=== PATIENT | female | born 1990 | race American Indian/Alaskan Native ===

== ENCOUNTER 2018-09-10 18:26 | Emergency (ER) | payer OTHER ==
[2018-09-10 18:59] VITALS: BP 144/91
--- NOTE | 2018-09-10 19:06 | Emergency Department Report ---
Blank Doc - Documentation Documentation: Abd pain n/v intermittently times 6 months. This initial assessment diagnostic orders/clinical plan/treatment (s) is/Are subject change based on patient's health status, clinical progression and re- assessment by fellow clinical providers in the ED. Further treatment and work-up at subsequent clinical providers discretion. Patient/guardians urged not to elope from s their condition may be serious if not clinically assessed and managed. Inital order include:
[2018-09-10 20:32] LABS: Basophils % (Auto) 0.7 % (0.0-1.8); Eosinophils # (Auto) 0.2 K/mm3 (0.0-0.4); Eosinophils % (Auto) 3.2 % (0.0-4.3); Hematocrit 33.9 % (30.3-42.9); Hemoglobin 11.7 gm/dl (10.1-14.3); Lymphocytes # (Auto) 2.4 K/mm3 (1.2-5.4); Lymphocytes % (Auto) 46.1 % (13.4-35.0); Mean Corpuscular HGB Conc 35 % (30-34); Mean Corpuscular Volume 83 fl (79-97); Monocytes # (Auto) 0.4 K/mm3 (0.0-0.8); Monocytes % (Auto) 7.1 % (0.0-7.3); Platelet Count 268 K/mm3 (140-440); Red Blood Count 4.08 M/mm3 (3.65-5.03); Red Cell Distribution Width 14.2 % (13.2-15.2)
[2018-09-10 20:41] LABS: Alanine Aminotransferase 17 units/L (7-56); Albumin 3.9 g/dL (3.9-5); BUN/Creatinine Ratio 6; Blood Urea Nitrogen 4 mg/dL (7-17); Calcium 8.9 mg/dL (8.4-10.2); Hemolysis Index 7
[2018-09-10 21:53] LABS: Bilirubin,Urine NEG (Negative); Blood,Urine NEG (Negative); Color,Urine Yellow (Yellow); Mucus,Urine 3+ /HPF; Protein,Urine <15 mg/dL mg/dL (Negative)
[2018-09-11] MEDS ORDERED: MACROBID PO ONE (00:05)
[2018-09-11] MEDS ORDERED: TYLENOL PO ONE (00:05)
--- NOTE | 2018-09-11 00:30 | Emergency Department Report ---
ED General Adult HPI - General Chief complaint: Nausea/Vomiting/Diarrhea Stated complaint: N/V CHEST PAIN BACK Time Seen by Provider: 09/10/18 19:04 Source: patient Mode of arrival: Ambulatory Limitations: No Limitations - History of Present Illness Initial comments: Patient is a 27-year-old female who presents for nausea and vomiting bilateral back pain management and dizziness 2 months 0 recurrent problem last 2 years patient also endorses dysuria frequency urgency there is no hematuria , there is no fever chills nausea vomiting or symptoms, pt is tolerating po intake at this time without N/V Onset/Timin -: year(s) Severity scale (0 -10): 3 Quality: sharp Consistency: constant Improves with: none Worsens with: none Associated Symptoms: cough - Related Data Previous Rx's Medication Instructions Recorded Last Taken Type Acetaminophen/Codeine [Tylenol 1 tab PO Q4HR PRN #12 tablet 05/26/18 Unknown Rx /Codeine # 3 tab] Ondansetron [Zofran Odt] 4 mg PO Q6HR PRN #20 tab.rapdis 05/26/18 Unknown Rx Promethazine [Phenergan TAB] 25 mg PO Q6HR PRN #20 tab 05/26/18 Unknown Rx ALBUTEROL Inhaler (OR & NICU) 2 puff IH Q4HR PRN #1 inhalation 06/03/18 Unknown Rx [ProAir HFA Inhaler] Codeine Phosphate/Guaifenesin 180 ml PO Q12HR PRN #180 liquid 06/03/18 Unknown Rx [Guaifenesin-Codeine Syrup] HYDROcodone/APAP 5-325 [[place] 1 each PO Q6HR PRN #12 tablet 06/03/18 Unknown Rx 5/325] Meclizine [Antivert] 25 mg PO TID PRN #30 tablet 06/03/18 Unknown Rx predniSONE [Deltasone] 20 mg PO DAILY #15 tablet 06/03/18 Unknown Rx Dicyclomine [Bentyl] 20 mg PO QID #20 tablet 07/01/18 Unknown Rx Promethazine [Phenergan TAB] 25 mg PO Q8HR PRN #18 tab 07/01/18 Unknown Rx Naproxen 500 mg PO BID PRN 1 Days #30 tablet 09/11/18 Unknown Rx Nitrofurantoin Monohyd/M-Cryst 100 mg PO BID #14 capsule 09/11/18 Unknown Rx [Macrobid 100 mg Capsule] Allergies Allergy/AdvReac Type Severity Reaction Status Date / Time ibuprofen [From Advil] Allergy Itching Verified 09/10/18 18:27 naproxen [From Aleve] Allergy Itching Verified 09/10/18 18:27 ED Review of Systems ROS: Stated complaint: N/V CHEST PAIN BACK Other details as noted in HPI Constitutional: denies: chills, fever Eyes: denies: eye pain, eye discharge, vision change ENT: denies: ear pain, throat pain Respiratory: denies: cough, shortness of breath, wheezing Cardiovascular: denies: chest pain, palpitations Endocrine: no symptoms reported Gastrointestinal: denies: abdominal pain, nausea, vomiting, diarrhea, constipation, hematemesis, melena, hematochezia Genitourinary: frequency, hematuria. denies: urgency, dysuria, discharge, abnormal menses Musculoskeletal: myalgia. denies: back pain, joint swelling, arthralgia Skin: denies: rash, lesions Neurological: denies: headache, weakness, paresthesias Psychiatric: denies: anxiety, depression Hematological/Lymphatic: denies: easy bleeding, easy bruising ED Past Medical Hx - Past Medical History Previous Medical History?: No - Surgical History Past Surgical History?: No - Social History Smoking Status: Current Some Day Smoker Substance Use Type: Alcohol - Medications Home Medications: Home Medications Medication Instructions Recorded Confirmed Last Taken Type Acetaminophen/Codeine [Tylenol 1 tab PO Q4HR PRN #12 tablet 05/26/18 Unknown Rx /Codeine # 3 tab] Ondansetron [Zofran Odt] 4 mg PO Q6HR PRN #20 tab.rapdis 05/26/18 Unknown Rx Promethazine [Phenergan TAB] 25 mg PO Q6HR PRN #20 tab 05/26/18 Unknown Rx ALBUTEROL Inhaler (OR & NICU) 2 puff IH Q4HR PRN #1 inhalation 06/03/18 Unknown Rx [ProAir HFA Inhaler] Codeine Phosphate/Guaifenesin 180 ml PO Q12HR PRN #180 liquid 06/03/18 Unknown Rx [Guaifenesin-Codeine Syrup] HYDROcodone/APAP 5-325 [[place] 1 each PO Q6HR PRN #12 tablet 06/03/18 Unknown Rx 5/325] Meclizine [Antivert] 25 mg PO TID PRN #30 tablet 06/03/18 Unknown Rx predniSONE [Deltasone] 20 mg PO DAILY #15 tablet 06/03/18 Unknown Rx Dicyclomine [Bentyl] 20 mg PO QID #20 tablet 07/01/18 Unknown Rx Promethazine [Phenergan TAB] 25 mg PO Q8HR PRN #18 tab 07/01/18 Unknown Rx Naproxen 500 mg PO BID PRN 1 Days #30 tablet 09/11/18 Unknown Rx Nitrofurantoin Monohyd/M-Cryst 100 mg PO BID #14 capsule 09/11/18 Unknown Rx [Macrobid 100 mg Capsule] ED Physical Exam - General Limitations: No Limitations General appearance: alert, in no apparent distress - Head Head exam: Present: atraumatic, normocephalic - Eye Eye exam: Present: normal appearance - ENT ENT exam: Present: mucous membranes moist - Neck Neck exam: Present: normal inspection - Respiratory Respiratory exam: Present: normal lung sounds bilaterally. Absent: respiratory distress - Cardiovascular Cardiovascular Exam: Present: regular rate, normal rhythm. Absent: systolic murmur, diastolic murmur, rubs, gallop - GI/Abdominal GI/Abdominal exam: Present: soft, normal bowel sounds. Absent: distended, tenderness - Rectal Rectal exam: Present: deferred - Extremities Exam Extremities exam: Present: normal inspection - Back Exam Back exam: Present: normal inspection ED Course Vital Signs 09/10/18 18:56 Temperature 98.3 F Pulse Rate 69 Respiratory 18 Rate Blood Pressure 144/91 O2 Sat by Pulse 100 Oximetry ED Medical Decision Making - Lab Data Result diagrams: 09/10/18 19:48 09/10/18 19:48 Abnormal Lab Results 09/10/18 09/10/18 09/10/18 19:48 19:48 21:24 WBC 5.3 RBC 4.08 Hgb 11.7 Hct 33.9 MCV 83 MCH 29 MCHC 35 H RDW 14.2 Plt Count 268 Lymph % (Auto) 46.1 H [place] % (Auto) 7.1 Eos % (Auto) 3.2 Baso % (Auto) 0.7 Lymph # 2.4 [place] # 0.4 Eos # 0.2 Baso # 0.0 Seg Neutrophils % 42.9 Seg Neutrophils # 2.3 Sodium 143 Potassium 3.6 Chloride 106.2 Carbon Dioxide 27 Anion Gap 13 BUN 4 L Creatinine 0.7 Estimated GFR > 60 BUN/Creatinine Ratio 6 Glucose 114 H Calcium 8.9 Total Bilirubin 0.20 AST 17 ALT 17 Alkaline Phosphatase 76 Total Protein 7.0 Albumin 3.9 Albumin/Globulin Ratio 1.3 Urine Color Yellow Urine Turbidity Slightly-cloudy Urine pH 5.0 Ur Specific [place] 1.027 Urine Protein <15 mg/dl Urine Glucose (UA) Neg Urine Ketones Neg Urine Blood Neg Urine Nitrite Neg Urine Bilirubin Neg Urine Urobilinogen 2.0 Ur Leukocyte Esterase Mod Urine WBC (Auto) 8.0 H Urine RBC (Auto) 6.0 U Epithel Cells (Auto) 7.0 Urine Mucus 3+ - Radiology Data Radiology results: pending - Medical Decision Making UA positive for leukocytes and blood cells small amount of red blood, ABD PAIN IMPROVED ,THERE IS NO NS plan treat for UTI Macrobid, naproxen: pt verbalized agreement and understanding of discharge plan. pt will follow up with pcp in 2- 3 days given referral to [facility] in 2-3 days Critical care attestation.: If time is entered above; I have spent that time in minutes in the direct care of this critically ill patient, excluding procedure time. ED Disposition Clinical Impression: UTI (urinary tract infection) Qualifiers: Urinary tract infection type: acute cystitis Hematuria presence: without hematuria Qualified Code(s): N30.00 - Acute cystitis without hematuria Disposition: TO HOME OR SELFCARE Is pt being admited?: No Condition: Stable Instructions: Urinary Tract Infection in Women (ED) Prescriptions: Naproxen 500 mg PO BID PRN 1 Days #30 tablet PRN Reason: Pain , Severe (7-10) Nitrofurantoin Monohyd/M-Cryst [Macrobid 100 mg Capsule] 100 mg PO BID #14 capsule Referrals: VITO HUNTER MD [Primary Care Provider] - 3-5 Days Forms: Work/School Release Form(ED) Time of Disposition: 00:43
== END 2018-09-11 01:05 | disposition home or self-care (01) ==
LOC: ED 18:26
DX: N39.0 Urinary tract infection, site not specified (principal); F17.200 Nicotine dependence, unspecified, uncomplicated; M79.10 Myalgia, unspecified site; Z88.5 Allergy status to narcotic agent
CPT/HCPCS: 36415; 80053; 81001; 85025; 99283

== ENCOUNTER 2018-11-07 11:10 | Emergency (ER) | payer OTHER ==
[2018-11-07 11:20] VITALS: BP 148/93
--- NOTE | 2018-11-07 11:21 | Emergency Department Report ---
Chief Complaint: Nausea/Vomiting/Diarrhea Stated Complaint: VOMITING/COLD SYM Time Seen by Provider: 11/07/18 11:16 - HPI History of Present Illness: This is a 27 y.o. female that presents with congestion, nausea, and vomiting. Patient states she is recovering from a URI for 3 weeks but can't get rid of it. She reports N/V x 3 weeks intermittently. LMP 10/29/18. PMH IBS Denies chest pain, abdominal pain, vaginal discharge, or back pain - Exam Vital Signs: Vital Signs 11/07/18 11:17 Temperature 98.7 F Pulse Rate 60 Respiratory 20 Rate Blood Pressure 148/93 O2 Sat by Pulse 99 Oximetry MSE screening note: Focused history and physical exam performed. Due to findings the following was ordered: Labs ACC for further evaluation. ED Disposition for MSE Condition: Stable
[2018-11-07 11:56] LABS: Hemoglobin 12.2 gm/dl (10.1-14.3); Mean Corpuscular HGB Conc 33 % (30-34); Mean Corpuscular Volume 82 fl (79-97); Platelet Count 239 K/mm3 (140-440); Red Blood Count 4.53 M/mm3 (3.65-5.03); Red Cell Distribution Width 14.8 % (13.2-15.2)
[2018-11-07 12:12] LABS: Alanine Aminotransferase 11 units/L (7-56); BUN/Creatinine Ratio 6; Blood Urea Nitrogen 5 mg/dL (7-17); Hemolysis Index 9
[2018-11-07] MEDS ORDERED: PEPCID IV ONE (12:17)
[2018-11-07] MEDS ORDERED: BENTYL IM ONE (12:17)
[2018-11-07] MEDS ORDERED: ZOFRAN IV ONE (12:17)
[2018-11-07] MEDS ORDERED: NACL 0.9% 1000 ML 1,000 ML IV ONE (12:17)
[2018-11-07 12:55] LABS: HCG Qualitative,Urine Negative (Negative)
--- NOTE | 2018-11-07 13:29 | Ultrasound Report ---
ULTRASOUND ABDOMEN LIMITED INDICATION: Epigastric pain, nausea, vomiting. COMPARISON: CT FINDINGS: Right upper quadrant sonography may suggest slight diffuse nonspecific hepatic coarsening. Grossly preserved contours. No definite focal suspicious lesion or biliary dilatation. No gallstones or pericholecystic fluid. Gallbladder wall thickness is 1.7 mm. Common bile duct is 2.6 mm. Imaged pancreas, nonaneurysmal abdominal aorta and IVC within normal limits. Unremarkable right kidney estimated at 10.9 x 5.7 x 5.7 cm with cortical thickness of 1.7 cm. CONCLUSION: No acute right upper quadrant sonographic abnormality with slightly coarse liver possible, as described. Please correlate. Thank you for the opportunity to participate in this patient's care.
--- NOTE | 2018-11-07 15:00 | Emergency Department Report ---
ED Abdominal Pain HPI - General Chief Complaint: Nausea/Vomiting/Diarrhea Stated Complaint: VOMITING/COLD SYM Time Seen by Provider: 11/07/18 11:16 Source: patient Mode of arrival: Ambulatory Limitations: No Limitations - History of Present Illness Initial Comments: Patient is a 27-year-old [place] female with past medical history of chronic diarrhea from possible IBS who is presenting with 3 days of diarrhea with nausea vomiting. Patient states that she has some generalized crampy abdominal pain. Patient states the pain is 5 out of 10 in severity and is worse as colicky in nature. Patient states she had one syncopal episode 3 days ago in the shower. Patient states that she feels near syncopal anytime she gets really hot. Patient states she has had off and on bouts of abdominal pain with nausea vomiting diarrhea for quite some time. Last time she saw a occupational health coordinator was over 5 years ago. Associated Symptoms: nausea, vomiting, diarrhea - Related Data Previous Rx's Medication Instructions Recorded Last Taken Type Acetaminophen/Codeine [Tylenol 1 tab PO Q4HR PRN #12 tablet 05/26/18 Unknown Rx /Codeine # 3 tab] Ondansetron [Zofran Odt] 4 mg PO Q6HR PRN #20 tab.rapdis 05/26/18 Unknown Rx Promethazine [Phenergan TAB] 25 mg PO Q6HR PRN #20 tab 05/26/18 Unknown Rx ALBUTEROL Inhaler (OR & NICU) 2 puff IH Q4HR PRN #1 inhalation 06/03/18 Unknown Rx [ProAir HFA Inhaler] Codeine Phosphate/Guaifenesin 180 ml PO Q12HR PRN #180 liquid 06/03/18 Unknown Rx [Guaifenesin-Codeine Syrup] HYDROcodone/APAP 5-325 [[place] 1 each PO Q6HR PRN #12 tablet 06/03/18 Unknown Rx 5/325] Meclizine [Antivert] 25 mg PO TID PRN #30 tablet 06/03/18 Unknown Rx predniSONE [Deltasone] 20 mg PO DAILY #15 tablet 06/03/18 Unknown Rx Dicyclomine [Bentyl] 20 mg PO QID #20 tablet 07/01/18 Unknown Rx Promethazine [Phenergan TAB] 25 mg PO Q8HR PRN #18 tab 07/01/18 Unknown Rx Acetaminophen [Tylenol Extra 1,000 mg PO QID PRN #30 tablet 09/11/18 Unknown Rx Strength] Acetaminophen [Tylenol Extra 1,000 mg PO QID PRN #30 tablet 09/11/18 Unknown Rx Strength] Nitrofurantoin Monohyd/M-Cryst 100 mg PO BID #14 capsule 09/11/18 Unknown Rx [Macrobid 100 mg Capsule] Dicyclomine [Bentyl] 20 mg PO QID #10 tablet 11/07/18 Unknown Rx Diphenoxylate/Atropine [Lomotil] 1 tab PO Q4H PRN #10 tablet 11/07/18 Unknown Rx Ondansetron [Zofran Odt] 4 mg PO Q8HR #10 tab.rapdis 11/07/18 Unknown Rx Allergies Allergy/AdvReac Type Severity Reaction Status Date / Time ibuprofen [From Advil] Allergy Itching Verified 11/07/18 11:17 morphine Allergy Itching Verified 11/07/18 11:17 naproxen [From Aleve] Allergy Itching Verified 11/07/18 11:17 ED Review of Systems ROS: Stated complaint: VOMITING/COLD SYM Other details as noted in HPI Comment: All other systems reviewed and negative ED Past Medical Hx - Past Medical History Previous Medical History?: Yes Additional medical history: IBS - Surgical History Past Surgical History?: No - Social History Smoking Status: Current Every Day Smoker Substance Use Type: Alcohol - Medications Home Medications: Home Medications Medication Instructions Recorded Confirmed Last Taken Type Acetaminophen/Codeine [Tylenol 1 tab PO Q4HR PRN #12 tablet 05/26/18 Unknown Rx /Codeine # 3 tab] Ondansetron [Zofran Odt] 4 mg PO Q6HR PRN #20 tab.rapdis 05/26/18 Unknown Rx Promethazine [Phenergan TAB] 25 mg PO Q6HR PRN #20 tab 05/26/18 Unknown Rx ALBUTEROL Inhaler (OR & NICU) 2 puff IH Q4HR PRN #1 inhalation 06/03/18 Unknown Rx [ProAir HFA Inhaler] Codeine Phosphate/Guaifenesin 180 ml PO Q12HR PRN #180 liquid 06/03/18 Unknown Rx [Guaifenesin-Codeine Syrup] HYDROcodone/APAP 5-325 [[place] 1 each PO Q6HR PRN #12 tablet 06/03/18 Unknown Rx 5/325] Meclizine [Antivert] 25 mg PO TID PRN #30 tablet 06/03/18 Unknown Rx predniSONE [Deltasone] 20 mg PO DAILY #15 tablet 06/03/18 Unknown Rx Dicyclomine [Bentyl] 20 mg PO QID #20 tablet 07/01/18 Unknown Rx Promethazine [Phenergan TAB] 25 mg PO Q8HR PRN #18 tab 07/01/18 Unknown Rx Acetaminophen [Tylenol Extra 1,000 mg PO QID PRN #30 tablet 09/11/18 Unknown Rx Strength] Acetaminophen [Tylenol Extra 1,000 mg PO QID PRN #30 tablet 09/11/18 Unknown Rx Strength] Nitrofurantoin Monohyd/M-Cryst 100 mg PO BID #14 capsule 09/11/18 Unknown Rx [Macrobid 100 mg Capsule] Dicyclomine [Bentyl] 20 mg PO QID #10 tablet 11/07/18 Unknown Rx Diphenoxylate/Atropine [Lomotil] 1 tab PO Q4H PRN #10 tablet 11/07/18 Unknown Rx Ondansetron [Zofran Odt] 4 mg PO Q8HR #10 tab.rapdis 11/07/18 Unknown Rx ED Physical Exam - General Limitations: No Limitations General appearance: alert, in no apparent distress - Head Head exam: Present: atraumatic, normocephalic - Eye Eye exam: Present: normal appearance - ENT ENT exam: Present: mucous membranes moist - Neck Neck exam: Present: normal inspection - Respiratory Respiratory exam: Present: normal lung sounds bilaterally. Absent: respiratory distress, wheezes, rales, rhonchi - Cardiovascular Cardiovascular Exam: Present: regular rate, normal rhythm. Absent: systolic murmur, diastolic murmur, rubs, gallop - GI/Abdominal GI/Abdominal exam: Present: soft, normal bowel sounds. Absent: distended, tenderness, guarding, rebound - Extremities Exam Extremities exam: Present: normal inspection - Back Exam Back exam: Present: normal inspection - Neurological Exam Neurological exam: Present: alert, oriented X3 - Psychiatric Psychiatric exam: Present: normal affect, normal mood - Skin Skin exam: Present: warm, dry, intact, normal color. Absent: rash ED Course Vital Signs 11/07/18 11:17 Temperature 98.7 F Pulse Rate 60 Respiratory 20 Rate Blood Pressure 148/93 O2 Sat by Pulse 99 Oximetry ED Medical Decision Making - Lab Data Result diagrams: 11/07/18 11:46 11/07/18 11:46 Lab Results 11/07/18 11/07/18 11/07/18 Range/Units 11:46 11:46 12:36 WBC 3.9 L (4.5-11.0) K/mm3 RBC 4.53 (3.65-5.03) M/mm3 Hgb 12.2 (10.1-14.3) gm/dl Hct 37.0 (30.3-42.9) % MCV 82 (79-97) fl MCH 27 L (28-32) pg MCHC 33 (30-34) % RDW 14.8 (13.2-15.2) % Plt Count 239 (140-440) K/mm3 Sodium 141 (137-145) mmol/L Potassium 3.6 (3.6-5.0) mmol/L Chloride 105.7 (98-107) mmol/L Carbon Dioxide 25 (22-30) mmol/L Anion Gap 14 mmol/L BUN 5 L (7-17) mg/dL Creatinine 0.9 (0.7-1.2) mg/dL Estimated GFR > 60 ml/min BUN/Creatinine Ratio 6 % Glucose 94 (65-100) mg/dL Calcium 9.0 (8.4-10.2) mg/dL Total Bilirubin 0.60 (0.1-1.2) mg/dL AST 13 (5-40) units/L ALT 11 (7-56) units/L Alkaline Phosphatase 68 (35-129) units/L Total Protein 7.2 (6.3-8.2) g/dL Albumin 4.0 (3.9-5) g/dL Albumin/Globulin Ratio 1.3 % Lipase 28 (13-60) units/L Urine HCG, Qual Negative (Negative) - Radiology Data [facility] [address] [place] [address] Ultrasound Report Signed Patient: GARDENIA LYNCH MR#: [id number] : 1990 Acct:[id number] Age/Sex: 27 / F ADM Date: 11/07/18 Loc: ED Attending Dr: Ordering Physician: PRISCILA COLLAZO MD Date of Service: 11/07/18 Procedure(s): US abdomen limited Accession Number(s): [id number] cc: PRISCILA COLLAZO MD ULTRASOUND ABDOMEN LIMITED INDICATION: Epigastric pain, nausea, vomiting. COMPARISON: CT FINDINGS: Right upper quadrant sonography may suggest slight diffuse nonspecific hepatic coarsening. Grossly preserved contours. No definite focal suspicious lesion or biliary dilatation. No gallstones or pericholecystic fluid. Gallbladder wall thickness is 1.7 mm. Common bile duct is 2.6 mm. Imaged pancreas, nonaneurysmal abdominal aorta and IVC within normal limits. Unremarkable right kidney estimated at 10.9 x 5.7 x 5.7 cm with cortical thickness of 1.7 cm. CONCLUSION: No acute right upper quadrant sonographic abnormality with slightly coarse liver possible, as described. Please correlate. Thank you for the opportunity to participate in this patient's care. Transcribed By: RS Dictated By: OZIEL ENCISO MD Electronically Authenticated By: OZIEL ENCISO MD Signed Date/Time: 11/07/18 132 DD/ 132 TD/TT: 11/07/18 1329 - Medical Decision Making Patient is a 27-year-old female presenting with nausea vomiting diarrhea. Patient states diarrhea is chronic however the nausea and vomiting present for 4 days. Patient was given meds for symptomatically relief in her nausea is improved. She was hydrated patient is no longer having any near syncopal symptoms. Patient be referred to gastroenterology and will be discharged home. Critical care attestation.: If time is entered above; I have spent that time in minutes in the direct care of this critically ill patient, excluding procedure time. ED Disposition Clinical Impression: Gastroenteritis Disposition: DC-01 TO HOME OR SELFCARE Is pt being admited?: No Does the pt Need Aspirin: No Condition: Stable Instructions: Gastroenteritis (ED) Referrals: VITO HUNTER MD [Primary Care Provider] - 3-5 Days [facility] [Provider Group] - 3-5 Days Time of Disposition: 15:00
== END 2018-11-07 15:23 | disposition home or self-care (01) ==
LOC: ED 11:10
DX: K52.9 Noninfective gastroenteritis and colitis, unspecified (principal); F17.200 Nicotine dependence, unspecified, uncomplicated; Z88.6 Allergy status to analgesic agent
CPT/HCPCS: 36415; 76705; 80053; 81025; 83690; 85027; 96361; 96372; 96374; 96375; 99284; J0500; J2405; J7030